=== PATIENT | female | born 1995 | race Caucasian/White ===

== ENCOUNTER 2024-01-28 20:15 | Emergency (ER) | payer OTHER ==
[2024-01-28 20:21] VITALS: BP 129/62; PULSE 94; RESP 19; TEMP 98.1; BMI 24.3
[2024-01-28] MEDS ORDERED: MAG HYDROX/AL HYDROX/SIMETH 30 ML UNIT-DOSE CUP ONE (21:07)
[2024-01-28] MEDS: MAG HYDROX/AL HYDROX/SIMETH 30 ML UNIT-DOSE CUP PO ONE (21:08)
== END 2024-01-28 21:10 | disposition home or self-care (01) ==
LOC: JER 20:15
DX: O26.899 Other specified pregnancy related conditions, unspecified trimester (principal); R14.0 Abdominal distension (gaseous); Z3A.00 Weeks of gestation of pregnancy not specified
CPT/HCPCS: 84703; 99283-25

== ENCOUNTER 2024-09-12 07:18 | Inpatient (IN) | payer OTHER ==
[2024-09-12] MEDS: LACTATED RINGERS SOLUTION 1,000 ML/1,000 ML INFUS.BAG IV SCH (09:00)
[2024-09-12 09:40] LABS: BASO % 0.6 % (0-2.0); EOS % 0.8 % (0-4.5); HEMATOCRIT 37.2 % (32.4-45.2); HEMOGLOBIN 12.1 GM/dL (10.7-15.3); LYMPH % 16.9 % (8-40); MCH 27.8 pg (25.7-33.7); MCHC 32.7 g/dl (32.0-36.0); MEAN CELL VOLUME 85.1 fl (80-96); MEAN PLT VOLUME 11.5 fl (7.5-11.1); MONO % 7.8 % (3.8-10.2); NEUT % 73.9 % (42.8-82.8); PLATELET COUNT 220 10^3/uL (134-434); RBC 4.37 M/mm3 (3.60-5.2); RDW 13.6 % (11.6-15.6); WHITE BLOOD COUNT 8.9 K/mm3 (4.0-10.0)
[2024-09-12 09:42] LABS: INR 0.88 (0.83-1.09); PROTHROMBIN TIME (PATIENT) 10.2 SEC (9.7-13.0)
[2024-09-12 09:45] LABS: ACTIVATED PTT 29.5 SECONDS (25.2-36.5)
[2024-09-12 10:02] LABS: POTASSIUM 3.9 mmol/L (3.5-5.1)
[2024-09-12 10:04] LABS: BLOOD UREA NITROGEN 6.8 mg/dL (7-18); CALCIUM 8.8 mg/dL (8.5-10.1)
[2024-09-12 10:08] LABS: CREATININE 0.5 mg/dL (0.55-1.3)
[2024-09-12] MEDS ORDERED: FENTANYL/BUPIVACAINE/NS/PF - PCEA - 50 ML DISP.SYRIN EP ONE ×2 (10:34→15:49)
[2024-09-12] MEDS ORDERED: NALOXONE HCL 0.4 MG/ML VIAL IVPUSH PRN ×2 (11:02→11:03)
[2024-09-12 11:03] VITALS: BMI 26.2
[2024-09-12] MEDS ORDERED: BUPIVACAINE HCL/PF 0.25% (2.5MG/ML) 10 ML VIAL ONE (11:07)
[2024-09-12] MEDS ORDERED: FENTANYL/BUPIVACAINE/NS/PF - PCEA - 50 ML DISP.SYRIN EP SCH (11:15)
[2024-09-12] MEDS: FENTANYL/BUPIVACAINE/NS/PF - PCEA - 50 ML DISP.SYRIN EP SCH (11:15)
[2024-09-12] MEDS ORDERED: AMPICILLIN SODIUM 2 GM VIAL ONE (12:13)
[2024-09-12] MEDS: AMPICILLIN - 2 GM in SODIUM CHLORIDE 100 ML IVPB ONE (12:20)
[2024-09-12 12:52] LABS: HIV INTERPRETATION NEGATIVE (NEGATIVE)
[2024-09-12] MEDS ORDERED: AMPICILLIN SODIUM 1 GM VIAL ONE (14:50)
[2024-09-12] MEDS ORDERED: OXYTOCIN 30 UNITS in 0.9% NS 30 UNIT/500 ML INFUS.BAG IVPB ONE (14:50)
[2024-09-12] MEDS: OXYTOCIN 30 UNITS in 0.9% NS 30 UNIT/500 ML INFUS.BAG IVPB SCH (15:15)
[2024-09-12] MEDS: AMPICILLIN - 1 GM in SODIUM CHLORIDE 100 ML IVPB SCH (16:25)
[2024-09-12] MEDS ORDERED: BISACODYL 10 MG SUPP.RECT RC PRN (18:42)
[2024-09-12] MEDS ORDERED: METHYLERGONOVINE MALEATE 0.2 MG/1 ML AMP IM PRN (18:42)
[2024-09-12] MEDS ORDERED: IBUPROFEN 600 MG TABLET (FP) PO PRN (18:42)
[2024-09-12] MEDS ORDERED: BENZOCAINE 28 GM HEMORRHOIDAL OINTMENT TP PRN (18:42)
[2024-09-12 18:57] LABS: CORD PCO2 57.7 mmHg (30-78); CORD pH 7.219 (7.14-7.44)
[2024-09-12 19:04] LABS: CORD BASE EXCESS -8.1 mmol/L (0-2); CORD HCO3 20.6 mmHg (20-29); CORD PCO2 54.5 mmHg (30-78); CORD pH 7.195 (7.14-7.44)
[2024-09-12] MEDS ORDERED: OXYTOCIN 20 UNITS in 0.9% NS 20 UNIT/1,000 ML INFUS.BAG IV ONE (19:05)
[2024-09-12] MEDS: OXYTOCIN 20 UNITS in 0.9% NS 20 UNIT/1,000 ML INFUS.BAG IV SCH (19:30)
[2024-09-12] MEDS ORDERED: ACETAMINOPHEN 325 MG TABLET (FP) ONE (20:51)
[2024-09-12] MEDS: ACETAMINOPHEN 325 MG TABLET (FP) PO PRN (21:05)
[2024-09-13 06:40] LABS: BASO % 0.5 % (0-2.0); EOS % 0.1 % (0-4.5); HEMATOCRIT 32.4 % (32.4-45.2); HEMOGLOBIN 10.6 GM/dL (10.7-15.3); LYMPH % 8.8 % (8-40); MCH 27.9 pg (25.7-33.7); MCHC 32.8 g/dl (32.0-36.0); MEAN CELL VOLUME 85.1 fl (80-96); MONO % 6.3 % (3.8-10.2); NEUT % 84.3 % (42.8-82.8); PLATELET COUNT 200 10^3/uL (134-434); RDW 13.6 % (11.6-15.6); WHITE BLOOD COUNT 15.5 K/mm3 (4.0-10.0)
[2024-09-13] MEDS: WITCH HAZEL 50% (TUCKS) 40 PAD/JAR PAD TP PRN (09:28)
[2024-09-13] MEDS: PRENATAL VITAMINS W/ FOLIC ACID TABLET (FP) PO SCH (09:28)
[2024-09-13] MEDS: BENZOCAINE 20% 57 GM BOTTLE TP PRN (09:28)
[2024-09-13] MEDS: FLU VACCINE (FLULAVAL) PF 45 MCG/0.5 ML SYRINGE 2024-2025 IM ONE (09:31)
[2024-09-13] MEDS: DIPHTH,PERTUSS(ACELL),TET 0.5 ML DISP.SYRIN IM ONE (09:34)
[2024-09-13] MEDS ORDERED: SENNOSIDES/DOCUSATE COMBO (SENNA PLUS) TABLET (UD) PO PRN (22:00)
[2024-09-14 08:26] LABS: POC NITRAZINE POS
[2024-09-14 09:17] VITALS: BP 124/72; PULSE 68; RESP 17; TEMP 98.5
== END 2024-09-14 12:50 | disposition home or self-care (01) | DRG 560 ==
LOC: JLDR 07:18 → J3W 21:14
PROVIDERS: ADMIT Obstetrics & Gynecology; ATTEND Obstetrics & Gynecology
PROC: 10E0XZZ Delivery of Products of Conception, External Approach (ICD-10-PCS; principal; 2024-09-12)
PROC: 0KQM0ZZ Repair Perineum Muscle, Open Approach (ICD-10-PCS; 2024-09-12)
DX: O99.824 Streptococcus B carrier state complicating childbirth (principal); O42.92 Full-term premature rupture of membranes, unspecified as to length of time between rupture and onset of labor; O70.1 Second degree perineal laceration during delivery; Z3A.38 38 weeks gestation of pregnancy; Z37.0 Single live birth
CPT/HCPCS: 36415; 36600; 59409; 80048; 82803; 83986-QW; 85025; 85610; 85730; 86780; 86803; 86850; 86900; 86901; 87389; 90656; 90715; G0008